=== PATIENT | male | born 1990 | race Two or more races ===

== ENCOUNTER 2024-01-24 09:18 | Inpatient (IN) | payer OTHER ==
[~2024-01-24] VITALS: Ht 167.6 cm; Wt 78.1 kg
[2024-01-24 10:35] LABS: BASOPHILS % (AUTO) 0.3 % (0.0-2.0); EOSINOPHILS % (AUTO) 0.3 % (1.0-6.0); HEMATOCRIT 49.6 % (41-53); HEMOGLOBIN 16.7 g/dL (13.5-17.5); LYMPHOCYTES # (AUTO) 1.6 K/uL (1.0-4.8); LYMPHOCYTES % (AUTO) 16.1 % (22.0-44.0); MEAN CORPUSCULAR HEMOGLOBIN 28.3 pg (26.0-34.0); MEAN CORPUSCULAR HGB CONC 33.6 G/dL (31.0-37.0); MEAN CORPUSCULAR VOLUME 84 fL (80-100); MONOCYTES # (AUTO) 0.6 K/uL (0.1-1.0); MONOCYTES % (AUTO) 5.9 % (2.0-9.0); NEUTROPHILS # (AUTO) 7.6 K/uL (1.8-7.7); NEUTROPHILS % (AUTO) 77.4 % (40.0-70.0); PLATELET COUNT (AUTO) 328 K/uL (150-450); RED CELL DISTRIBUTION WIDTH 13.4 % (11.5-14.5); WHITE BLOOD COUNT (AUTO) 9.9 K/uL (4.5-11.0)
[2024-01-24 10:43] LABS: ANION GAP 8 mmol/L (8-16); CALCIUM, TOTAL 9.1 mg/dL (8.8-10.5); CARBON DIOXIDE 27 mmol/L (22-29); CHLORIDE 101 mmol/L (98-107); GLOMERULAR FILTR. RATE CALC > 60 mL/min (>60); GLUCOSE,RANDOM 113 mg/dL (70-110); POTASSIUM 4.3 mmol/L (3.5-5.1); SODIUM SERUM 136 mmol/L (136-145); UREA NITROGEN, BLOOD 12 mg/dL (7-18)
[2024-01-24 10:47] LABS: ALCOHOL, BLOOD (SERUM) < 3 mg/dL (0-10)
[2024-01-24 10:50] LABS: ALANINE AMINOTRANSFERASE 42 U/L (12-78); ALBUMIN 3.9 g/dL (3.4-5.0); ALKALINE PHOSPHATASE 80 U/L (46-116); ASPARTATE AMINOTRANSFERASE 20 U/L (15-37); BILIRUBIN,TOTAL 1.8 mg/dL (0.1-1.0); TOTAL PROTEIN, SERUM 7.5 g/dL (6.4-8.2)
[2024-01-24 10:53] LABS: COVID AG,FIA SOURCE NASAL SWAB
[2024-01-24 11:07] LABS: ALCOHOL, URINE DRUG SCREEN NEGATIVE (NEGATIVE); AMPHET/METH SCREEN,URINE NEGATIVE (NEGATIVE); BARBITURATE SCREEN, URINE NEGATIVE (NEGATIVE); BENZODIAZEPINES SCREEN,URINE NEGATIVE (NEGATIVE); CANNABINOID SCREEN,URINE NEGATIVE (NEGATIVE); COCAINE SCREEN,URINE NEGATIVE (NEGATIVE); METHADONE SCREEN, URINE NEGATIVE (NEGATIVE); OPIATE SCREEN,URINE NEGATIVE (NEGATIVE); PHENCYCLIDINE SCREEN,URINE NEGATIVE (NEGATIVE)
[2024-01-24 11:18] LABS: SARS-COV2 (COVID) ANTIGEN,FIA Negative (Negative)
[2024-01-24] MEDS ORDERED: GuaiFENesin/D-METHORPHAN [SUGAR-FREE] 200-20MG/10 ML SYRUP UDCUP PO PRN (19:30)
[2024-01-24] MEDS ORDERED: DOCUSATE SODIUM 100 MG CAPSULE PO PRN (19:30)
[2024-01-24] MEDS ORDERED: MAGNESIUM HYDROXIDE SUSPENSION 30 ML UDCUP PO PRN (19:30)
[2024-01-24] MEDS ORDERED: MAG HYDROX/ALUMINUM HYD/SIMETH ES 30 ML SUSPENSION UDCUP PO PRN (19:30)
[2024-01-24] MEDS ORDERED: IBUPROFEN 400 MG TABLET PO PRN (19:30)
[2024-01-24] MEDS ORDERED: ALBUTEROL SULFATE HFA 90 MCG/PUFF 8 GM INHALER IH PRN (19:30)
[2024-01-24] MEDS ORDERED: PETROLATUM,WHITE 28 GM JELLY TP PRN (19:30)
[2024-01-24] MEDS ORDERED: CloNIDine HCL 0.1 MG TABLET PO PRN (19:30)
[2024-01-24] MEDS ORDERED: ACETAMINOPHEN 325 MG TABLET PO PRN (19:30)
[2024-01-24] MEDS ORDERED: NICOTINE 14 MG/24 HOUR PATCH TD PRN (19:30)
[2024-01-24] MEDS ORDERED: LOPERAMIDE HCL 2 MG CAPSULE PO PRN (19:30)
[2024-01-24] MEDS ORDERED: ONDANSETRON 4 MG TABLET PO PRN (19:30)
[2024-01-24 19:39] VITALS: BP 126/67; PULSE 100; RESP 18; TEMP 98.6; O2SAT 95
[2024-01-25 05:40] VITALS: BP 131/64; PULSE 85; RESP 16; TEMP 97.5; O2SAT 99
[2024-01-25 07:43] VITALS: BP 115/60; PULSE 91; RESP 18; TEMP 98.2; O2SAT 94
[2024-01-25 08:03] LABS: HEMOGLOBIN A1C 5.2 % (3.8-5.6)
[2024-01-25 08:14] LABS: CHOL/HDL RATIO 4.8 (4.2-7.3); THYROID STIMULATING HORMONE 0.85 uIU/mL (0.36-3.74)
[2024-01-25 18:28] LABS: APPEARANCE,URINE CLEAR (CLEAR); BILIRUBIN,URINE NEGATIVE (NEGATIVE); COLOR,URINE LIGHT YELLOW (YELLOW); GLUCOSE, URINE (UA) NEGATIVE (NEGATIVE); KETONES,URINE NEGATIVE (NEGATIVE); LEUKOCYTE ESTERASE ,URINE NEGATIVE (NEGATIVE); NITRATE,URINE NEGATIVE (NEGATIVE); OCCULT BLOOD,URINE NEGATIVE (NEGATIVE); PROTEIN,URINE NEGATIVE (NEGATIVE); SPECIFIC GRAVITIY, URINE 1.012 (1.003-1.030); UROBILINOGEN,URINE <=1.0 mg/dL (<=1.0)
[2024-01-25 18:36] LABS: ALCOHOL, URINE DRUG SCREEN NEGATIVE (NEGATIVE); AMPHET/METH SCREEN,URINE NEGATIVE (NEGATIVE); BARBITURATE SCREEN, URINE NEGATIVE (NEGATIVE); BENZODIAZEPINES SCREEN,URINE NEGATIVE (NEGATIVE); CANNABINOID SCREEN,URINE NEGATIVE (NEGATIVE); COCAINE SCREEN,URINE NEGATIVE (NEGATIVE); METHADONE SCREEN, URINE NEGATIVE (NEGATIVE); OPIATE SCREEN,URINE NEGATIVE (NEGATIVE); PHENCYCLIDINE SCREEN,URINE NEGATIVE (NEGATIVE)
[2024-01-25 19:49] VITALS: BP 115/75; PULSE 89; RESP 18; TEMP 98.2; O2SAT 95
[2024-01-26 05:26] VITALS: BP 109/59; PULSE 81; RESP 18; TEMP 98; O2SAT 98
[2024-01-26 07:56] VITALS: BP 117/65; PULSE 75; RESP 18; TEMP 98.5; O2SAT 95
== END 2024-01-26 14:37 | DRG 881 ==
LOC: EMS 09:18 → CANBEDREQ 13:39 → EDH 15:13 → 6S 15:58
PROVIDERS: ADMIT Internal Medicine; ATTEND Internal Medicine
DX: F32.9 Major depressive disorder, single episode, unspecified (principal); R45.851 Suicidal ideations; F41.9 Anxiety disorder, unspecified; R73.9 Hyperglycemia, unspecified; Z20.822 Contact with and (suspected) exposure to COVID-19; F43.21 Adjustment disorder with depressed mood
CPT/HCPCS: 80048; 80061; 80076; 80307; 81003; 83036; 84443; 85025; 99285; G0480